=== PATIENT | female | born 1990 | race Caucasian/White ===

== ENCOUNTER 2017-01-06 19:44 | Emergency (ER) | payer OTHER ==
[~2017-01-06] VITALS: Ht 162.5 cm; Wt 61.2 kg
[2017-01-06 20:08] LABS: BILIRUBIN NEGATIVE (NEGATIVE); BLOOD NEGATIVE (NEGATIVE); CLARITY CLEAR (CLEAR); COLOR YELLOW (YELLOW); GLUCOSE NEGATIVE (NEGATIVE); KETONE NEGATIVE (NEGATIVE); LEUKO ESTERASE NEGATIVE (NEGATIVE); NITRITE NEGATIVE (NEGATIVE); PH 6.5 (5.0-9.0); PROTEIN NEGATIVE (NEGATIVE)
[2017-01-06 20:14] LABS: BASO % 0.4 % (0.0-1.0); EOS # 0.1 10*3/uL (0.0-0.4); HEMATOCRIT 37.1 % (37.0-47.0); HEMOGLOBIN 12.4 g/dl (12.0-16.0); IG # 0.1 10*3/uL (0.0-0.1); LYMPH # 2.2 10*3/uL (1.3-4.4); LYMPH % 23.7 % (27.0-41.0); MEAN CELL VOLUME 95.6 fl (81.0-99.0); MEAN CORPUSCULAR HGB CONC 33.4 g/dl (33.0-37.0); MONO # 0.5 10*3/uL (0.1-1.0); MONO % 5.7 % (3.0-9.0); NEUT # 6.4 10*3/uL (2.3-7.9); NEUT % 68.7 % (47.0-73.0); PLATELET COUNT AUTOMATED 201 10*3/uL (130-400); RED BLOOD COUNT 3.88 10*6/uL (4.10-5.10); RED CELL DISTRI WIDTH 12.9 % (0-14.5); WHITE BLOOD COUNT 9.3 10*3/uL (4.8-10.8)
[2017-01-06 20:19] LABS: BACTERIA TRACE
[2017-01-06 20:20] LABS: EPITHELIAL CELLS 0-2; URINE REFLEX COMMENT NO (NO)
[2017-01-06 20:30] LABS: ALBUMIN 3.7 gm/dl (3.1-4.5); ALKALINE PHOSPHATASE 52 U/L (45-117); BILIRUBIN, TOTAL 0.4 mg/dl (0.2-1.0); BUN 8 mg/dl (7-24); CARBON DIOXIDE 23 mmol/L (21-32); CHLORIDE 109 mmol/L (98-107); EST GLOM FILT AFRICAN AMERICAN > 60 ml/min; GLUCOSE 90 mg/dL (65-99); POTASSIUM 3.9 mmol/L (3.5-5.1); SGOT/AST 17 IU/L (3-35); SGPT/ALT 19 U/L (12-78); SODIUM 139 mmol/L (136-145); TOTAL PROTEIN 7.3 gm/dL (6.4-8.2)
[2017-01-06] MEDS ORDERED: NAPROSYN500 MG PO (22:53)
[2017-01-06] MEDS ORDERED: MIRALAX POWDER17 G1 PO (22:53)
== END 2017-01-06 23:21 | disposition home or self-care (01) ==
LOC: ED 19:44
PROVIDERS: Nurse Practitioner Family
DX: K59.00 Constipation, unspecified (principal); R10.31 Right lower quadrant pain; Z88.0 Allergy status to penicillin

== ENCOUNTER 2017-06-20 11:46 | Emergency (ER) | payer OTHER ==
[~2017-06-20] VITALS: Ht 160 cm; Wt 63.5 kg
[~2017-06-20 11:46] MED LIST: MIRALAX POWDER17 G1 PO; NAPROSYN500 MG PO
[2017-06-20] MEDS ORDERED: PREDNISONE10 MG PO (12:25)
[2017-06-20] MEDS ORDERED: CLARITIN10 MG PO (12:25)
[2017-06-20] MEDS ORDERED: FLONASE ALLERG9.9 ML NAS (12:25)
[2017-06-20] MEDS ORDERED: ROBITUSSIN DM 105 ML PO (12:25)
== END 2017-06-20 12:51 | disposition home or self-care (01) ==
LOC: ED 11:46
DX: J01.90 Acute sinusitis, unspecified (principal); Z88.0 Allergy status to penicillin

== ENCOUNTER 2017-12-16 13:43 | Emergency (ER) | payer OTHER ==
[~2017-12-16] VITALS: Ht 162.5 cm; Wt 66.2 kg
[~2017-12-16 13:43] MED LIST changes: +CLARITIN10 MG PO; +FLONASE ALLERG9.9 ML NAS; +PREDNISONE10 MG PO; +ROBITUSSIN DM 105 ML PO
[2017-12-16] MEDS ORDERED: FLONASE ALLERG9.9 ML NS (14:16)
[2017-12-16] MEDS ORDERED: TESSALON PERLE100 M1 PO (14:16)
== END 2017-12-16 14:29 | disposition home or self-care (01) ==
LOC: ED 13:43
DX: J40 Bronchitis, not specified as acute or chronic (principal); J06.9 Acute upper respiratory infection, unspecified; Z79.899 Other long term (current) drug therapy; Z88.0 Allergy status to penicillin

== ENCOUNTER 2018-02-23 09:04 | Emergency (ER) | payer OTHER ==
[~2018-02-23] VITALS: Wt 68.9 kg
[~2018-02-23 09:04] MED LIST changes: +FLONASE ALLERG9.9 ML NS; +TESSALON PERLE100 M1 PO
== END 2018-02-23 12:04 | disposition home or self-care (01) ==
LOC: ED 09:04
DX: S70.01XA Contusion of right hip, initial encounter (principal); R51 Headache; Z88.0 Allergy status to penicillin; Z79.899 Other long term (current) drug therapy; W18.09XA Striking against other object with subsequent fall, initial encounter; Y93.89 Activity, other specified; Y92.89 Other specified places as the place of occurrence of the external cause; Y99.8 Other external cause status

== ENCOUNTER 2019-11-26 08:00 | Emergency (ER) | payer OTHER ==
[~2019-11-26] VITALS: Ht 157.4 cm; Wt 68.9 kg
[2019-11-26 09:28] LABS: BASO % 0.3 % (0.0-1.0); EOS % 0.3 % (1.0-4.0); HEMATOCRIT 38.5 % (37.0-47.0); LYMPH # 1.7 10*3/uL (1.3-4.4); LYMPH % 24.3 % (27.0-41.0); MEAN CORPUSCULAR HGB 33.7 pg (27.0-31.0); MEAN PLATELET VOLUME 9.7 fl (9.6-12.3); MONO # 0.5 10*3/uL (0.1-1.0); MONO % 6.8 % (3.0-9.0); NEUT # 4.9 10*3/uL (2.3-7.9); NEUT % 68.2 % (47.0-73.0); PLATELET COUNT AUTOMATED 209 10*3/uL (130-400); RED BLOOD COUNT 3.89 10*6/uL (4.10-5.10); RED CELL DISTRI WIDTH 11.7 % (0-14.5); WHITE BLOOD COUNT 7.2 10*3/uL (4.8-10.8)
[2019-11-26 09:30] LABS: BILIRUBIN NEGATIVE (NEGATIVE); BLOOD NEGATIVE (NEGATIVE); CLARITY SL CLOUDY (CLEAR); COLOR YELLOW (YELLOW); GLUCOSE NEGATIVE (NEGATIVE); KETONE 3+ (NEGATIVE); LEUKO ESTERASE NEGATIVE (NEGATIVE); NITRITE NEGATIVE (NEGATIVE); SPECIFIC GRAVITY 1.015 (1.005-1.030); UROBILINOGEN 0.2 E.U./dl (0.2-1.0)
[2019-11-26 09:31] LABS: BACTERIA 2+; MUCOUS 3+; WBC 0-2 wbc/hpf (0-5)
[2019-11-26 09:34] LABS: ALBUMIN 3.9 gm/dl (3.1-4.5); ALKALINE PHOSPHATASE 49 U/L (45-117); BUN 7 mg/dl (7-24); CHLORIDE 108 mmol/L (98-107); CREATININE 0.59 mg/dL (0.55-1.02); LIPASE 87 U/L (73-393); POTASSIUM 3.8 mmol/L (3.5-5.1); SGOT/AST 16 IU/L (3-35); SGPT/ALT 26 U/L (12-78); SODIUM 137 mmol/L (136-145); TOTAL PROTEIN 7.5 gm/dL (6.4-8.2)
[2019-11-26] MEDS ORDERED: UNISOM25 M1 PO (11:13)
[2019-11-26] MEDS ORDERED: VITAMIN B-625 M1 PO (11:13)
[2019-11-26] MEDS ORDERED: PRENATAL VITAM1 EAC4 PO (11:15)
== END 2019-11-26 11:35 | disposition home or self-care (01) ==
LOC: ED 08:00
PROVIDERS: Emergency Medicine
DX: O99.611 Diseases of the digestive system complicating pregnancy, first trimester (principal); O21.9 Vomiting of pregnancy, unspecified; K80.80 Other cholelithiasis without obstruction; Z3A.01 Less than 8 weeks gestation of pregnancy; Z88.0 Allergy status to penicillin

== ENCOUNTER 2020-03-07 18:26 | Emergency (ER) | payer OTHER ==
[~2020-03-07] VITALS: Wt 63.5 kg
[~2020-03-07 18:26] MED LIST changes: +PRENATAL VITAM1 EAC4 PO; +UNISOM25 M1 PO; +VITAMIN B-625 M1 PO
[2020-03-07 19:00] LABS: BASO % 0.2 % (0.0-1.0); EOS # 0.1 10*3/uL (0.0-0.4); EOS % 0.4 % (1.0-4.0); HEMATOCRIT 36.8 % (37.0-47.0); LYMPH # 1.9 10*3/uL (1.3-4.4); LYMPH % 16.5 % (27.0-41.0); MEAN CELL VOLUME 97.9 fl (81.0-99.0); MEAN CORPUSCULAR HGB CONC 33.7 g/dl (33.0-37.0); MEAN PLATELET VOLUME 10.7 fl (9.6-12.3); MONO # 0.7 10*3/uL (0.1-1.0); MONO % 5.8 % (3.0-9.0); NEUT # 8.9 10*3/uL (2.3-7.9); NEUT % 76.8 % (47.0-73.0); PLATELET COUNT AUTOMATED 223 10*3/uL (130-400); RED BLOOD COUNT 3.76 10*6/uL (4.10-5.10); RED CELL DISTRI WIDTH 12.4 % (0-14.5); WHITE BLOOD COUNT 11.6 10*3/uL (4.8-10.8)
[2020-03-07 19:21] LABS: ALBUMIN 3.4 gm/dl (3.1-4.5); ALKALINE PHOSPHATASE 67 U/L (45-117); BUN 3 mg/dl (7-24); CHLORIDE 110 mmol/L (98-107); CREATININE 0.46 mg/dL (0.55-1.02); LIPASE 72 U/L (73-393); POTASSIUM 3.6 mmol/L (3.5-5.1); SGOT/AST 21 IU/L (3-35); SGPT/ALT 23 U/L (12-78)
[2020-03-07 19:22] LABS: SODIUM 139 mmol/L (136-145)
[2020-03-07 20:08] LABS: BILIRUBIN 1+; BLOOD NEGATIVE (NEGATIVE); CLARITY CLOUDY (CLEAR); COLOR DARK YELLOW (YELLOW); GLUCOSE NEGATIVE; KETONE 3+; LEUKO ESTERASE 2+ (NEGATIVE); NITRITE NEGATIVE (NEGATIVE); PH 6.5 (4.5-8.0); SPECIFIC GRAVITY 1.025 (1.001-1.030)
[2020-03-07 20:15] LABS: EPITHELIAL CELLS 16-20; RBC 0-2 rbc/hpf (0-2)
[2020-03-07 20:16] LABS: CALCIUM OXALATE CRYSTALS 1+
[2020-03-07 20:17] LABS: MUCOUS 2+
[2020-03-07 20:18] LABS: BACTERIA 2+
[2020-03-07] MEDS ORDERED: MACROBID100 M1 PO (20:25)
[2020-03-07] MEDS ORDERED: REGLAN10 M1 PO (20:25)
== END 2020-03-07 20:33 | disposition home or self-care (01) ==
LOC: ED 18:26
PROVIDERS: Physician Assistant
DX: O23.42 Unspecified infection of urinary tract in pregnancy, second trimester (principal); Z88.0 Allergy status to penicillin; Z79.899 Other long term (current) drug therapy; Z3A.20 20 weeks gestation of pregnancy

== ENCOUNTER 2022-02-19 23:52 | Emergency (ER) | payer OTHER ==
[~2022-02-19] VITALS: Ht 157.4 cm; Wt 79.4 kg
[~2022-02-19 23:52] MED LIST changes: +MACROBID100 M1 PO; +REGLAN10 M1 PO
[2022-02-20] MEDS ORDERED: NURTEC ODT75 MG PO
[2022-02-20] MEDS ORDERED: ZITHROMAX250 MG PO (00:20)
== END 2022-02-20 00:35 | disposition home or self-care (01) ==
LOC: ED 23:52
DX: J03.90 Acute tonsillitis, unspecified (principal); F17.200 Nicotine dependence, unspecified, uncomplicated; Z88.0 Allergy status to penicillin; Z79.899 Other long term (current) drug therapy

== ENCOUNTER 2023-10-20 12:24 | Emergency (ER) | payer OTHER ==
[~2023-10-20] VITALS: Wt 80.3 kg
[~2023-10-20 12:24] MED LIST changes: +NURTEC ODT75 MG PO; +ZITHROMAX250 MG PO
[2023-10-20] MEDS ORDERED: Ondansetron Hydrochloride 4 MG TAB SL ONE (13:00)
[2023-10-20 13:11] LABS: HEMATOCRIT 43.4 % (37.0-47.0); MEAN CELL VOLUME 96.9 fl (81.0-99.0); MEAN CORPUSCULAR HGB 32.4 pg (27.0-31.0); MEAN CORPUSCULAR HGB CONC 33.4 g/dl (33.0-37.0); MEAN PLATELET VOLUME 9.8 fl (9.6-12.3); PLATELET COUNT AUTOMATED 202 10*3/uL (130-400); RED BLOOD COUNT 4.48 10*6/uL (4.10-5.10); RED CELL DISTRI WIDTH 12.3 % (0-14.5); WHITE BLOOD COUNT 16.2 10*3/uL (4.8-10.8)
[2023-10-20 13:12] LABS: MANUAL DIFF REFLEX YES
[2023-10-20 13:32] LABS: ALKALINE PHOSPHATASE 60 U/L (46-116); BUN 8 mg/dl (9-23); CHLORIDE 112 mmol/L (98-107); LIPASE 48 U/L (12-53); POTASSIUM 3.6 mmol/L (3.4-5.1); SGPT/ALT 14 U/L (5-49); TOTAL PROTEIN 7.5 gm/dL (6.0-8.0)
[2023-10-20 13:35] LABS: TOTAL CELLS COUNTED 100 #CELLS
[2023-10-20 13:36] LABS: OVALOCYTES FEW; PLATELET SUFFICIENCY NORMAL (NORMAL); POLYCHROMASIA SLIGHT
[2023-10-20] MEDS ORDERED: ONDANSETRON4 MG SL (14:19)
== END 2023-10-20 14:26 | disposition home or self-care (01) ==
LOC: ED 12:24
PROVIDERS: Internal Medicine
DX: K52.9 Noninfective gastroenteritis and colitis, unspecified (principal); R11.2 Nausea with vomiting, unspecified; Z88.0 Allergy status to penicillin; Z91.018 Allergy to other foods; Z87.891 Personal history of nicotine dependence; Z98.51 Tubal ligation status

== ENCOUNTER 2023-11-18 10:31 | Emergency (ER) | payer OTHER ==
[~2023-11-18] VITALS: Ht 157.4 cm; Wt 80.3 kg
[~2023-11-18 10:31] MED LIST changes: +ONDANSETRON4 MG SL
== END 2023-11-18 11:23 | disposition home or self-care (01) ==
LOC: ED 10:31
DX: N93.9 Abnormal uterine and vaginal bleeding, unspecified (principal); Z88.0 Allergy status to penicillin; Z91.018 Allergy to other foods; Z98.51 Tubal ligation status

== ENCOUNTER 2024-03-09 13:44 | Emergency (ER) | payer OTHER ==
[~2024-03-09] VITALS: Ht 162.5 cm; Wt 81.6 kg
[2024-03-09] MEDS ORDERED: SODIUM CHLORIDE 0.9% 1,000 ML IV ONE (14:25)
[2024-03-09] MEDS ORDERED: diphenhydrAMINE hydrochloride 50 MG/ML VIAL IV ONE (14:25)
[2024-03-09] MEDS ORDERED: Metoclopramide Hydrochloride 10 MG/2 ML AMP IV ONE (14:25)
[2024-03-09 14:37] LABS: BASO % 0.3 % (0.0-1.0); EOS # 0.1 10*3/uL (0.0-0.4); HEMATOCRIT 40.9 % (37.0-47.0); LYMPH % 18.7 % (27.0-41.0); MEAN CORPUSCULAR HGB 32.2 pg (27.0-31.0); MEAN CORPUSCULAR HGB CONC 33.5 g/dl (33.0-37.0); MEAN PLATELET VOLUME 9.8 fl (9.6-12.3); MONO # 0.7 10*3/uL (0.1-1.0); MONO % 6.4 % (3.0-9.0); NEUT # 7.8 10*3/uL (2.3-7.9); NEUT % 73.3 % (47.0-73.0); PLATELET COUNT AUTOMATED 240 10*3/uL (130-400); RED BLOOD COUNT 4.26 10*6/uL (4.10-5.10); RED CELL DISTRI WIDTH 12.3 % (0-14.5); WHITE BLOOD COUNT 10.7 10*3/uL (4.8-10.8)
[2024-03-09 14:51] LABS: ACT PARTIAL THROMBO TIME 26.3 SECONDS (20.0-32.1)
[2024-03-09 14:54] LABS: ALKALINE PHOSPHATASE 62 U/L (46-116); BUN 7 mg/dl (9-23); CHLORIDE 108 mmol/L (98-107); POTASSIUM 3.8 mmol/L (3.4-5.1); SGPT/ALT 15 U/L (5-49); TOTAL PROTEIN 6.9 gm/dL (6.0-8.0)
[2024-03-09 15:27] LABS: BILIRUBIN Negative (Negative); BLOOD Negative (Negative); CLARITY Cloudy (Clear); COLOR Yellow (Yellow); GLUCOSE Negative (Negative); KETONE Negative (Negative); LEUKO ESTERASE Negative (Negative); NITRITE Negative (Negative); SPECIFIC GRAVITY >= 1.030 (1.001-1.030)
[2024-03-09 15:29] LABS: PH >= 9.0 (4.5-8.0)
[2024-03-09 15:44] LABS: BACTERIA 1+; MUCOUS 2+
[2024-03-09] MEDS ORDERED: Ondansetron4 MG PO (15:58)
[2024-03-09] MEDS ORDERED: MIRALAX POWDER17 G1 PO (15:58)
== END 2024-03-09 16:20 | disposition home or self-care (01) ==
LOC: ED 13:44
PROVIDERS: Nurse Practitioner
DX: B34.9 Viral infection, unspecified (principal); Z20.822 Contact with and (suspected) exposure to COVID-19; K59.00 Constipation, unspecified; R11.2 Nausea with vomiting, unspecified; R10.2 Pelvic and perineal pain; Z88.0 Allergy status to penicillin; Z91.018 Allergy to other foods; Z87.891 Personal history of nicotine dependence; Z98.51 Tubal ligation status

== ENCOUNTER 2025-05-04 09:19 | Emergency (ER) | payer OTHER ==
[~2025-05-04] VITALS: Ht 157.4 cm; Wt 82.6 kg
[~2025-05-04 09:19] MED LIST changes: +Ondansetron4 MG PO
[2025-05-04] MEDS ORDERED: NAPROSYN500 MG PO (09:57)
[2025-05-04] MEDS ORDERED: HYDROCODONE-AC1 EAC1 PO (09:57)
== END 2025-05-04 10:06 | disposition home or self-care (01) ==
LOC: ED 09:19
DX: S92.532A Displaced fracture of distal phalanx of left lesser toe(s), initial encounter for closed fracture (principal); Z88.0 Allergy status to penicillin; Z91.018 Allergy to other foods; Z98.51 Tubal ligation status; W22.8XXA Striking against or struck by other objects, initial encounter; Y93.89 Activity, other specified; Y92.89 Other specified places as the place of occurrence of the external cause; Y99.8 Other external cause status